=== PATIENT | female | born 1955 | race Caucasian/White ===

== ENCOUNTER → 2019-07-27 07:30 | Outpatient (CLI) | payer OTHER, SELFPAY ==
[2019-07-27 08:25] LABS: Add Manual Diff / Slide Review NO; Basophils Absolute Auto 100 /uL (0-100); Basophils Percent Auto 1.2 % (0-2); Eosinophils Absolute Auto 200 /uL (0-450); Eosinophils Percent Auto 3.4 % (2-4); Hematocrit 37.9 % (36-46); Hemoglobin 13.1 g/dL (12.0-16.0); Lymphocytes Absolute Auto 1900 /uL (1100-4500); Lymphocytes Percent Auto 30.8 % (25-40); Mean Corpuscular HGB Conc 34.5 % (30-36); Mean Corpuscular Hemoglobin 34.6 PG (26-34); Mean Corpuscular Volume 100.3 fL (80-100); Monocytes Absolute Auto 600 /uL (0-900); Monocytes Percent Auto 10.5 % (3-14); Neutrophils Absolute Auto 3300 /uL (1500-7000); Neutrophils Percent Auto 54.1 % (50-75); Platelet Count 265 X10^3/uL (150-400); Red Blood Cell Count 3.78 X10^6/uL (4.0-5.2); Red Cell Distribution Width 12.6 % (11.6-14.8); White Blood Cell Count 6.1 X10^3/uL (4.5-11.0)
[2019-07-27 08:47] LABS: Alanine Aminotransferase 29 IU/L (<35); Albumin 4.4 g/dL (3.5-5.0); Albumin Globulin Ratio 1.4 (1.0-2.8); Alkaline Phosphatase 69 U/L (38-126); Aspartate Aminotransferase 41 IU/L (14-36); BUN Creatinine Ratio 17.2 (6-22); Bilirubin Total 0.5 mg/dL (0.2-1.3); Blood Urea Nitrogen 11 mg/dL (7-17); Calcium 9.8 mg/dL (8.4-10.2); Carbon Dioxide 29 mmol/L (22-32); Chloride 103 mmol/L (98-107); Cholesterol 212 mg/dL (140-199); Estimated Glomerular Filt Rate > 60.0 mL/min (>60); Globulin 3.2 g/dL (1.7-4.1); Glucose 92 mg/dL (80-110); HDL Cholesterol 84 mg/dL (40-60); LDL Cholesterol Calculated 110 mg/dL (<100); Potassium 4.6 mmol/L (3.4-5.1); Sodium 138 mmol/L (137-145); Total Protein 7.6 g/dL (6.3-8.2); Triglycerides 88 mg/dL (35-150)
[2019-07-27 08:48] LABS: HEMOLYSIS 59 (0-50)
[2019-07-27 09:12] LABS: TSH w/ Reflex to FT4 0.82 uIU/mL (0.47-4.68)
[2019-07-30 14:24] LABS: Fecal Immunochemical Test Negative (Negative)
== END ==
PROVIDERS: PCP Internal Medicine; Referring Provider Internal Medicine; Visit Provider Internal Medicine
DX: Z13.1 Encounter for screening for diabetes mellitus (principal); Z13.220 Encounter for screening for lipoid disorders; Z13.6 Encounter for screening for cardiovascular disorders; Z12.11 Encounter for screening for malignant neoplasm of colon; I10 Essential (primary) hypertension
CPT/HCPCS: 36415; 80053; 80061; 82274; 84443; 85025

== ENCOUNTER → 2020-10-08 12:06 | Outpatient (CLI) | payer OTHER, SELFPAY | PROVIDERS: PCP Internal Medicine; Referring Provider Family Medicine; Visit Provider Family Medicine | DX: M85.851 Other specified disorders of bone density and structure, right thigh (principal); Z13.820 Encounter for screening for osteoporosis; Z78.0 Asymptomatic menopausal state; Z90.722 Acquired absence of ovaries, bilateral; Z85.42 Personal history of malignant neoplasm of other parts of uterus | CPT/HCPCS: 77080 ==

== ENCOUNTER 2023-07-27 08:09 | Day surgery (SDC) | payer OTHER, SELFPAY ==
[2023-07-27 08:34] VITALS: BP 152/85; PULSE 87; RESP 20; TEMP 36.6; O2SAT 100
[2023-07-27] MEDS: LACTATED RINGERS 1,000 ML 42 ML IV (08:49)
--- NOTE | 2023-07-27 08:59 | PM.HP.1 ---
History of Present Illness History of Present Illness Date Patient Seen: 07/27/23 Chief complaint: Colonoscopy Narrative: Seconds screening colonoscopy FOR[facility] Medical History (Updated 05/08/20 @ 07:25 by Kredits Ma) Transaminitis Vision disorder Hearing loss Acne (~1966) Measles Skin cancer (~2011) Abnormal Pap smear of cervix Uterine cancer (~2014) Surgical History Anesthesia History of surgery [place] teeth removed (~1979) History of tonsillectomy (~1966) Social History Smoking Status: Never smoker alcohol intake: current Meds Home Medications and Allergies Home Medications Medication Instructions Recorded Confirmed Type calcium carb-vit [id number] 1 tab PO DAILY 04/03/19 07/27/23 History 333 mg-200 unit-133 mg-5 mg tablet clotrimazole-betamethasone 1 1 applictn topical BID #15 grams 04/03/19 07/27/23 Rx %-0.05 % topical cream (Lotrisone) multivitamin with minerals 1 tab PO DAILY 04/03/19 07/27/23 History (Hair,Skin and Nails tablet) cholecalciferol (vitamin D3) 50 2,000 unit PO DAILY 06/05/19 07/27/23 History mcg (2,000 unit) capsule hydrochlorothiazide 12.5 mg tablet 12.5 mg PO DAILY #90 tabs 10/19/19 07/27/23 Rx losartan 50 mg tablet 50 mg PO DAILY #90 tabs 04/21/20 07/27/23 Rx metoprolol succinate 50 mg 50 mg PO DAILY #90 tabs 04/21/20 07/27/23 Rx tablet,extended release 24 hr Allergies Allergy/AdvReac Type Severity Reaction Status Date / Time No Known Drug Allergies Allergy Verified 06/05/19 10:24 Exam Vital Signs (past 8 hours): - 07/27/23 08:34 Temperature 97.9 F Pulse Rate 87 Respiratory Rate 20 Blood Pressure 152/85 H Pulse Oximetry 100 Oxygen Delivery Method Room Air Oxygen Delivery Method Room Air Narrative Exam Narrative: Oropharynx free of lesions Chest clear to auscultation percussion Cardiac exam reveals no S3 or murmur OR Assessment & Plan Assessment & Plan narrative: Second screening colonoscopy need for follow-up. Risks, benefits, alternatives have been explained.
--- NOTE | 2023-07-27 09:18 | PM.OP.COLON ---
Operative Date/Time/Diagnoses Date of procedure: 07/27/23 Pre-op diagnosis: See indication and findings Procedure & Clinicians Indications: 2nd screening colonoscopy. Rare rectal bleeding with protruding hemorrhoids Surgeon: Debbi Gallardo Procedure Notes Procedure in detail: After informed consent was obtained the patient was placed in left lateral decubitus position. The video colonoscope was introduced the rectum slowly advanced cecum. Preparation was excellent. On slow withdrawal mucosa was carefully examined. The scope was removed. The patient tolerated procedure well. Blood loss none Complications none On Sedation mac Findings 1. Moderate internal hemorrhoids with prolapsing skin tag present. 2. Otherwise negative colonoscopy to cecum Gisselle should have follow-up colonoscopy in 10 years
[2023-07-27 09:21] VITALS: BP 105/67; PULSE 76; RESP 9; TEMP 36.6; O2SAT 97
[2023-07-27 09:26] VITALS: BP 99/65; PULSE 65; RESP 15; O2SAT 98
[2023-07-27 09:31] VITALS: BP 102/67; PULSE 62; RESP 13; O2SAT 98
[2023-07-27 09:37] VITALS: BP 121/58; PULSE 65; TEMP 36.4; O2SAT 99
== END 2023-07-27 09:49 | disposition home or self-care (01) ==
PROVIDERS: PCP Family Medicine; Referring Provider Internal Medicine Gastroenterology; Visit Provider Internal Medicine Gastroenterology
PROC: 0DJD8ZZ Inspection of Lower Intestinal Tract, Via Natural or Artificial Opening Endoscopic (ICD-10-PCS; CPT 45378; principal; 2023-07-27 09:00)
DX: Z12.11 Encounter for screening for malignant neoplasm of colon (principal); K64.8 Other hemorrhoids; K64.4 Residual hemorrhoidal skin tags
CPT/HCPCS: G0105; J2704

== ENCOUNTER 2023-09-22 12:13 | Observation (INO) | payer OTHER, SELFPAY ==
[2023-09-22] VITALS (10 sets, daily range): BP systolic 84–178; BP diastolic 50–91; PULSE 80–95; RESP 14–20; TEMP 36.1–38.8; O2SAT 95–100; BMI 21.9; BMI 22.7
--- NOTE | 2023-09-22 12:44 | ED_ITS ---
HPI - Skin/Abscess/Foreign Bdy General Chief complaint: Skin/Abscess/Foreign Body Stated complaint: sent by PCPjosé on rt buttocks Time Seen by Provider: 09/22/23 12:44 Source: patient Mode of arrival: Ambulatory History of Present Illness HPI narrative: 68-year-old female nonsmoker with history of hypertension presents at the request of her primary care provider for evaluation of a worsening right buttock abscess. She had initially seen in outpatient clinic and also the walk-in clinic about 7 days ago and initially it was a small abscess, not appropriate for incision and drainage and the patient has been on doxycycline for the past week. Though she denies fever or chills she has progressively begun to feel generally unwell with poor appetite. She has been NPO since 12/01 this morning when she had cereal and this afternoon took a doxycycline. It is hard for her to tell if having a bowel movement itself worsens the pain or just sitting down worsens it. She denies any history of prior skin infection or MRSA. Related Data Home Medications Medication Instructions Recorded Confirmed calcium carb-vit [id number] 1 tab PO DAILY 04/03/19 09/16/23 333 mg-200 unit-133 mg-5 mg tablet multivitamin with minerals 1 tab PO DAILY 04/03/19 09/16/23 (Hair,Skin and Nails tablet) cholecalciferol (vitamin D3) 50 2,000 unit PO DAILY 06/05/19 09/16/23 mcg (2,000 unit) capsule Previous Rx's Medication Instructions Recorded clotrimazole-betamethasone 1 1 applictn topical BID #15 grams 04/03/19 %-0.05 % topical cream (Lotrisone) hydrochlorothiazide 12.5 mg tablet 12.5 mg PO DAILY #90 tabs 10/19/19 losartan 50 mg tablet 50 mg PO DAILY #90 tabs 04/21/20 metoprolol succinate 50 mg 50 mg PO DAILY #90 tabs 04/21/20 tablet,extended release 24 hr doxycycline hyclate 100 mg tablet 100 mg PO BID #14 tabs 09/16/23 Allergies Allergy/AdvReac Type Severity Reaction Status Date / Time No Known Drug Allergies Allergy Verified 09/22/23 12:32 Review of Systems Review of Systems Narrative: GENERAL: See HPI HEENT: Denies sinus pain, ear pain, sore throat, difficulty swallowing, dizziness. RESPIRATORY: Denies dyspnea, cough, wheezing, hemoptysis, sputum. CARDIOVASCULAR: Denies chest pain, palpitations, orthopnea, edema, GASTROINTESTINAL: Denies nausea, vomiting, abdominal pain, diarrhea, constipation, melena. : Denies dysuria, frequency, incontinence, hematuria, urinary retention. MUSCULOSKELETAL: denies weakness, joint pain, or bony pain SKIN: See HPI NEUROLOGIC: Denies weakness, headache, numbness, change in speech, confusion, seizures, incoordination. PSYCHIATRIC: No concerning psychosocial issues. 12 point review of systems is negative except for those stated above Patient History Medical History Transaminitis Vision disorder Hearing loss Acne (~1966) Measles Skin cancer (~2011) Abnormal Pap smear of cervix Uterine cancer (~2014) Surgical History Anesthesia History of surgery [place] teeth removed (~1979) History of tonsillectomy (~1966) Social History Smoking Status: Never smoker alcohol intake: current Smoking Status: Never smoker alcohol intake frequency: holidays/special occasions only Substance Use Type: does not use Exam Narrative Exam Narrative: GENERAL: [68 year old patient appears stated age. Well-developed patient, in mild distress. HEAD: Atraumatic. Normocephalic. EYES: Pupils equal round and reactive. Extraocular motions intact. No scleral icterus. No injection or drainage. ENT: Nose without bleeding, purulent drainage. Throat without erythema, tonsillar hypertrophy or exudate. Airway patent. NECK: Trachea midline. Non tender CARDIOVASCULAR: Regular rate and rhythm without murmurs, gallops, or rubs. RESPIRATORY: Clear to auscultation. Breath sounds equal bilaterally. No wheezes, rales, or rhonchi. GASTROINTESTINAL: Abdomen soft, non-tender, nondistended. EXTREMITIES: No edema or joint tenderness. BACK: Nontender without deformity or crepitance. No flank tenderness. NEURO: AOx3. SKIN: Large tense and tender R buttock, bulk of buttock is indurated, no drainage Initial Vital Signs Initial Vital Signs: Vital Signs Temperature 98.8 F 09/22/23 12:25 Pulse Rate 92 H 09/22/23 12:25 Respiratory Rate 16 09/22/23 12:25 Blood Pressure 178/81 H 09/22/23 12:25 Pulse Oximetry 98 09/22/23 12:25 Oxygen Delivery Method Room Air 09/22/23 12:25 Course Orders Ordered: ED Orders 09/22/23 12:51 CT abdomen pelvis w con Stat 09/22/23 13:35 CBC Auto Diff [Complete Blood Count AUTO DIFF] Stat CMP [Comprehensive Metabolic Panel] Stat Lactate (Lactic Acid) Stat 09/22/23 13:51 Blood Culture Stat Vancomycin HCl (Vancomycin) 1,250 mg in 250 mls @ 250 mls/hr IV Q24H MAME Last Admin: 09/22/23 14:07 Dose: 250 mls/hr Documented By: RADHA Discontinued Medications Sodium Chloride (Normal Saline 0.9%) 500 mls @ 1,000 mls/hr IV BOLUS ONE Stop: 09/22/23 13:20 Last Admin: 09/22/23 14:09 Dose: 1,000 mls/hr Documented By: RADHA Piperacillin Sod/Tazobactam (Sod 4.5 gm/ Sodium Chloride) 100 mls @ 200 mls/hr IV NOW ONE Stop: 09/22/23 14:34 Consultations Consultation #1: Discussed with on-call surgeon, CT still pending, however given the size and location of this abscess it is unreasonable to consider performing incision drainage at the bedside in the emergency department. She requests upon completion of Imaging patient be admitted to the medical service and she will I and D tomorrow. Vital Signs Vital signs: Vital Signs - 8 hr 09/22/23 12:25 Temperature 98.8 F Pulse Rate 92 H Respiratory Rate 16 Blood Pressure 178/81 H Pulse Oximetry 98 Oxygen Delivery Method Room Air MDM - Skin/Abscess/Foreign Bdy Lab Data 09/22/23 13:35 09/22/23 13:35 Labs: Lab Results 09/22/23 Range/Units 13:35 WBC 21.4 H (4.5-11.0) X10^3/uL RBC 3.16 L (4.0-5.2) X10^6/uL Hgb 10.7 L (12.0-16.0) g/dL Hct 31.4 L (36-46) % MCV 99.5 (80-100) fL MCH 33.9 (26-34) PG MCHC 34.1 (30-36) % RDW 12.2 (11.6-14.8) % Plt Count 376 (150-400) X10^3/uL Neut % (Auto) 88.9 H (50-75) % Lymph % (Auto) 3.2 L (25-40) % [place] % (Auto) 7.3 (3-14) % Eos % (Auto) 0.4 L (2-4) % Baso % (Auto) 0.2 (0-2) % Neut # (Auto) 11285 H (6624-4543) /uL Lymph # (Auto) 700 L (3785-8982) /uL [place] # (Auto) 1600 H (0-900) /uL Eos # (Auto) 100 (0-450) /uL Baso # (Auto) 0 (0-100) /uL Sodium 129 L (137-145) mmol/L Potassium 3.4 (3.4-5.1) mmol/L Chloride 97 L (98-107) mmol/L Carbon Dioxide 24 (22-32) mmol/L BUN 7 (7-17) mg/dL Creatinine 0.57 (0.52-1.04) mg/dL Estimated GFR > 60 (>60) mL/min BUN/Creatinine Ratio 12.3 (6-22) Glucose 99 (80-110) mg/dL Lactate 2.0 (0.7-2.1) mmol/L Calcium 9.0 (8.4-10.2) mg/dL Total Bilirubin 0.9 (0.2-1.3) mg/dL AST 91 H (14-36) IU/L ALT 144 H (<35) IU/L Alkaline Phosphatase 257 H (38-126) U/L Total Protein 6.6 (6.3-8.2) g/dL Albumin 3.5 (3.5-5.0) g/dL Globulin 3.1 (1.7-4.1) g/dL Albumin/Globulin Ratio 1.1 (1.0-2.8) Urine Dip Bedside Urine Glucose Negative Bedside Urine Bilirubin - Negative Bedside Urine Ketone - Negative Urine Specific [place] 1.005 Bedside Urine Occult Blood - Negative Bedside Urine pH 6 Bedside Urine Protein - Negative Bedside Urine Urobilinogen - Negative Bedside Urine Nitrite - Negative Bedside Urine Leukocytes - Negative Esterase Imaging Data CT scan - abdomen/pelvis: Radiologist's Impression: Perirectal abscess MDM Narrative Medical decision making narrative: 68-year-old female with history of hypertension presents with worsening right buttock pain, swelling and redness consistent with abscess over the past week despite taking doxycycline as written. She does not meet any septic criteria and only systemic complaints are of generalized fatigue and feeling unwell. Patient is found [place] [address] and left shift. Slight bump in LFTs, no right upper quadrant pain noted. Likely acute phase reactant. Imaging notes not only large buttock abscess but suggest perirectal involvement. Initially vancomycin ordered but upon receipt of imaging antibiotics were switched to Zosyn. Discussed with on-call surgeon, Dr. Gaxiola, she is happy to have patient on her service, will keep patient NPO after midnight, likely OR tomorrow. Patient and understand and agree with the diagnosis and plan. Discharge Plan Departure Patient Disposition: Admitted As Inpatient Clinical Impression: Abscess, perirectal
--- NOTE | 2023-09-22 12:51 | DI.CT.S_ITS ---
PROCEDURE: CT ABDOMEN PELVIS W CON INDICATIONS: large tense R buttock abscess, concern for perirectal TECHNIQUE: After the administration of intravenous contrast, axial sections acquired from the lung bases to the pubic symphysis. Coronal and sagittal reformats were performed. For radiation dose reduction, the following was used: automated exposure control, adjustment of mA and/or kV according to patient size. COMPARISON: None. FINDINGS: Image quality: Diagnostic. Lower Chest: No significant findings. ABDOMEN: Liver: No solid mass. Gallbladder: No radiopaque gallstones or wall thickening. Biliary ducts: No biliary dilation. Pancreas: No ductal dilation. Spleen: Size is within normal limits. Adrenal Glands: No adrenal nodules. Kidneys and Ureters: No hydronephrosis. No solid mass. No complex renal cystic lesion which requires follow up. Stomach and Bowel: Normal colonic caliber, without significant wall thickening. The appendix is thin walled and gas filled. Peritoneum: No abnormal intraperitoneal fluid. No free air. Ventral Wall: No significant ventral hernia. Abdominal Nodes: No retroperitoneal or mesenteric adenopathy by size criteria. Vessels: Aorta and inferior vena cava are normal in size. PELVIS: Pelvic Organs: Unremarkable. Bladder: No bladder wall thickening, accounting for underdistention. Pelvic Nodes: No enlarged lymph nodes. Miscellaneous: No inguinal hernias are seen. There is a rim enhancing, loculated appearing fluid collection within the medial right buttock adjacent to the gluteal crease which measures approximately 2.7 by 6.7 x 6.5 cm. There is marked fat stranding within the surrounding subcutaneous fat. No discrete tract is visualized to the rectosigmoid region; however the expected fat plane along the posterior wall of the rectosigmoid is not visualized suggesting a fistulous communication. Bones: No aggressive osseous abnormality. IMPRESSION: 1. Right perirectal abscess. Although a direct fistulous tract is not identified, findings suggest communication with the posterior wall of the rectosigmoid. 2. No other acute intra-abdominal findings. Normal appendix. Dictated by: Janice aRo M.D. on 09/22/2023 at 13:58 Approved by: Janice Rao M.D. on 09/22/2023 at 14:06
[2023-09-22 13:48] LABS: Add Manual Diff / Slide Review NO; Basophils Absolute Auto 0 /uL (0-100); Basophils Percent Auto 0.2 % (0-2); Eosinophils Absolute Auto 100 /uL (0-450); Eosinophils Percent Auto 0.4 % (2-4); Hematocrit 31.4 % (36-46); Hemoglobin 10.7 g/dL (12.0-16.0); Lymphocytes Absolute Auto 700 /uL (1100-4500); Lymphocytes Percent Auto 3.2 % (25-40); Mean Corpuscular HGB Conc 34.1 % (30-36); Mean Corpuscular Hemoglobin 33.9 PG (26-34); Mean Corpuscular Volume 99.5 fL (80-100); Monocytes Absolute Auto 1600 /uL (0-900); Monocytes Percent Auto 7.3 % (3-14); Neutrophils Absolute Auto 19000 /uL (1500-7000); Neutrophils Percent Auto 88.9 % (50-75); Platelet Count 376 X10^3/uL (150-400); Red Blood Cell Count 3.16 X10^6/uL (4.0-5.2); Red Cell Distribution Width 12.2 % (11.6-14.8); White Blood Cell Count 21.4 X10^3/uL (4.5-11.0)
[2023-09-22 13:59] LABS: Alanine Aminotransferase 144 IU/L (<35); Albumin 3.5 g/dL (3.5-5.0); Albumin Globulin Ratio 1.1 (1.0-2.8); Alkaline Phosphatase 257 U/L (38-126); Aspartate Aminotransferase 91 IU/L (14-36); BUN Creatinine Ratio 12.3 (6-22); Bilirubin Total 0.9 mg/dL (0.2-1.3); Blood Urea Nitrogen 7 mg/dL (7-17); Carbon Dioxide 24 mmol/L (22-32); Chloride 97 mmol/L (98-107); Estimated Glomerular Filt Rate > 60 mL/min (>60); Globulin 3.1 g/dL (1.7-4.1); Glucose 99 mg/dL (80-110); HEMOLYSIS < 15 (0-50); Potassium 3.4 mmol/L (3.4-5.1); Sodium 129 mmol/L (137-145); Total Protein 6.6 g/dL (6.3-8.2)
[2023-09-22] MEDS: VANCOMYCIN 1,250 MG/250 ML PIGGYBACK 250 MG IV (14:07)
[2023-09-22] MEDS: SODIUM CHLORIDE 0.9% 500 ML 1000 ML IV (14:09)
--- NOTE | 2023-09-22 14:15 | PM.CALLCOV.1 ---
Call Coverage Note Note Date of Patient Contact: 09/22/23 Narrative of Care Provided: I and D Tuesday.
[2023-09-22] MEDS: PIPERACILLIN/TAZO 4.5 GM in SODIUM CHLORIDE 0.9% 100 ML IV (14:50)
--- NOTE | 2023-09-22 15:38 | PM.PREOP ---
Pre-operative Note Interval Note History & Physical reviewed/Exam performed by Physician: Yes Changes to H&P: Yes H&P completed within 30 days and has changed as indicated here:: Surgery today
--- NOTE | 2023-09-22 15:49 | SUR.OPER ---
Lithotomy on padded OR bed, head on pillow, arms secured on padded arm boards at <90 degrees abduction. Legs secured in padded yellow fins stirrups.
[2023-09-22] MEDS: CELECOXIB 200 MG CAPSULE PO (15:59)
[2023-09-22] MEDS: LACTATED RINGERS 1,000 ML 100 ML IV (15:59)
[2023-09-22] MEDS: BUPIVACAINE 0.25% (PF) 30 ML, EPINEPHrine 0.15 MG INJ (16:25)
--- NOTE | 2023-09-22 16:27 | PM.OP.1 ---
Operative Date/Time/Diagnoses Date of procedure: 09/22/23 Time of procedure: 16:27 Pre-op diagnosis: Perirectal abscess on the right Post-op diagnosis: same Procedure & Clinicians Procedure: Incision and drainage of perirectal abscess on the right Same procedure as scheduled: Yes Indications: Right perirectal abscess Surgeon: Tamela Gaxiola Click Yes if Unassisted: Yes Anesthesia Type: General and Local Operative Notes Findings: Large right-sided perirectal abscess with proximally 100 cc purulent drainage Closure Type: not applicable Specimen(s): other (Cultures of abscess right perirectal) Applied: drain(s) (Quarter-inch Danisha drain) Estimated Blood Loss (mL): 100 Blood products transfused: none Procedure in detail: Preop diagnosis: Right perirectal abscess Postop diagnosis: Same Operative procedure: Incision and drainage of perirectal abscess Surgeon: Abimbola Gaxiola MD Findings: Large right-sided perirectal abscess with a proximally 100 mL of pus Procedure: Patient placed in lithotomy position. Prepped and draped in sterile fashion. Local anesthetic was injected into the involved area and a 10 blade was used to incise radially from the right side of the anus. Was able to into her finger into the abscess cavity and drained it completely. A quarter-inch Danisha drain was then placed into the wound and sutured to the skin with a 3-0 nylon. Dry dressings were placed. Patient was awakened, extubated, taken to recovery room in stable condition. Needle, instrument, sponge counts were correct. Specimen: Abscess culture Blood loss: 100 mL Complications: none Post-operative Condition: stable Disposition: PACU
[2023-09-22] MEDS: POTASSIUM CHLORIDE 20 MEQ TAB 40 MEQ PO (17:36)
[2023-09-22] MEDS: OXYCODONE IR 5 MG TABLET PO (17:36)
[2023-09-22] MEDS: AMOXICILLIN/CLAV 875/125 MG 1 TAB PO (18:27)
--- NOTE | 2023-09-22 18:46 | PC.NURSE ---
Day shift: Patient admitted from PACU at 1745. Patient awake, rating pain 4/10. PO oxycodone given. Patient requesting to go home. Ambulating without dizziness. No nausea. VS WNL. Patient able to void in BR with no issues. PIV removed prior to discharge. Called MD Gaxiola with updates and MD Gaxiola put in discharge orders. Patient discharge education given, including wound care. All questions answered. Patient stated understanding. PCT Chase escorted patient to main entrance via wheelchair.
== END 2023-09-22 19:12 | disposition home or self-care (01) | DRG 346 ==
LOC: ED 14:37 → AC 14:41
PROVIDERS: Admitting Provider Surgery; Emergency Provider Emergency Medicine; PCP Family Medicine; Referring Provider Emergency Medicine; Visit Provider Surgery
PROC: (CPT 46050; principal; 2023-09-22 15:30)
DX: K61.1 Rectal abscess (principal); D72.829 Elevated white blood cell count, unspecified
CPT/HCPCS: 46050; 36415; 46040; 74177; 80053; 81003; 83605; 85025; 87040; 87070; 87075; 87076; 87077; 87185; 87186; 87205; 96365; 96367; 96375; 99284; G0378; J0171; J2405; J2543; J2704; J3010; Q9967